=== PATIENT | female | born 1980 | race African-American/Black ===

== ENCOUNTER 2017-03-13 05:49 | Emergency (ER) | payer SELFPAY ==
[~2017-03-13] VITALS: Ht 162.6 cm; Wt 89.8 kg
[~2017-03-13 05:49] MED LIST: TRAMADOL HCL50 MG ORAL
[2017-03-13 06:10] VITALS: BP 159/81
--- NOTE | 2017-03-13 06:13 | Emergency Room Report ---
History of Present Illness General Chief Complaint: Toothache Source: Patient Present Illness HPI Patient with swelling L cheek since yesterday. Denies tooth pain. No fevers. Pain reported 10/10, aching and pressure in cheek radiates into face on L. No fevers, chills. Able to chew and swallow without difficulty. Never with this problem before. Motrin yesterday with some help. No skin changes. Not . No dyspnea. Allergies: Coded Allergies: NO KNOWN ALLERGIES (Unverified Allergy, Unknown, 05/08/15) Patient History Past Medical History: see triage record Social History: Denies: smoking Social History Narrative home Last Menstrual Period: two weeks ago Now: No : 5 Reviewed Nursing Documentation: PMH: Agreed, PSxH: Agreed Nursing Documentation-PMH Past Medical History: No Stated History Review of Systems All Other Systems: negative except mentioned in HPI Physical Exam Vital Signs Date Time Temp Pulse Resp B/P (MAP) Pulse Ox O2 Delivery O2 Flow Rate FiO2 03/13/17 05:54 97.9 78 18 159/81 98 Sp02 EP Interpretation: reviewed, normal General Appearance: well appearing, no apparent distress, GCS 15 Head: normocephalic, atraumatic Eyes: bilateral eye normal inspection, bilateral eye PERRL ENT: hearing grossly normal, normal pharynx, normal voice, moist mucus membranes, other - swelling L cheek above parotid, no dental pain Neck: full range of motion, supple Respiratory: no respiratory distress, speaking full sentences Cardiovascular #1: regular rate, rhythm Cardiovascular #2: 2+ radial (R) Musculoskeletal: digits/nails normal, gait/station normal, normal range of motion, no calf tenderness Neurologic: alert, oriented x3, grossly normal Psychiatric: mood/affect normal Skin: no rash Medical Decision Making Diagnostic Impression: Primary Impression: Dental abscess ER Course Patient with facial swelling and pain. Ddx: parotidis, tooth abscess, ST infection/cellulitis of cheek amongst others. No dental pain. Swelling is above parotid, more associated with upper alveolar ridge. Antibiotics and analgesia indicated. Patient stable for outpatient observation and treatment. Last Vital Signs Date Time Temp Pulse Resp B/P (MAP) Pulse Ox O2 Delivery O2 Flow Rate FiO2 03/13/17 06:46 97.9 78 18 159/81 98 03/13/17 06:10 Room Air Status: improved Disposition: HOME, SELF-CARE Condition: Improved Scripts Amoxicillin* (AMOXIL*) 500 Mg Capsule 500 MG ORAL THREE TIMES A DAY, #21 CAP Prov: Alonzo Finch M.D. 03/13/17 Lidocaine HCl 2% Viscous (Lidocaine HCl 2% Viscous) 100 Ml Solution 1 APPLIC ORAL QID for dental pain, #30 ML Prov: Alonzo Finch M.D. 03/13/17 Tramadol Hcl* (ULTRAM*) 50 Mg Tablet 50 MG ORAL Q6H Y for For Pain, #10 TAB 0 Refills Prov: Alonzo Finch M.D. 03/13/17 Alonzo Finch M.D. Mar 13, 2017 06:13
[2017-03-13] MEDS ORDERED: Ketorolac 60mg Inj IM ONE (06:15)
[2017-03-13] MEDS ORDERED: oxyCODONE HCL/Acetaminophen 5/325mg ORAL ONE (06:15)
[2017-03-13] MEDS ORDERED: TRAMADOL HCL50 MG ORAL (06:17)
[2017-03-13] MEDS ORDERED: AMOXICILLIN500 MG ORAL (06:17)
[2017-03-13] MEDS ORDERED: LIDOCAINE VISC100 ML ORAL (06:17)
[2017-03-13 06:46] VITALS: BP 159/81
== END 2017-03-13 06:46 | disposition home or self-care (01) ==
LOC: EMR 06:22
DX: K04.7 Periapical abscess without sinus (principal)
CPT/HCPCS: 96372; 99284

== ENCOUNTER 2017-03-27 18:54 | Emergency (ER) | payer SELFPAY ==
[~2017-03-27] VITALS: Ht 162.6 cm; Wt 63.5 kg
[~2017-03-27 18:54] MED LIST changes: +AMOXICILLIN500 MG ORAL; +LIDOCAINE VISC100 ML ORAL
--- NOTE | 2017-03-27 19:19 | Emergency Room Report ---
History of Present Illness General Chief Complaint: Pain Source: Patient Present Illness HPI 36 YO Female presents to the ED c/O bilateral 10/10 wrist pain x months. pt. has hx of carpal tunnel, and previously was doing physical therapy. pt. reports changes in insurance recently and has no continuation of medical care for her symptoms. pt. denies trauma or fall, denies erythema, fevers, chills, or rashes. 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 Denies numbness tingling or loss of sensation or gross motor movements of the extremities, incontinence of bowel or bladder. Denies CP, Palpitations, LOC, AMS, dizziness, Changes in Vision, Sensation, paresthesias, or a sudden severe headache. Allergies: Coded Allergies: NO KNOWN ALLERGIES (Unverified Allergy, Unknown, 05/08/15) Patient History Past Medical History: see triage record Past Surgical History: none Pertinent Family History: none Last Menstrual Period: 03/05/17 Now: No Immunizations: UTD Reviewed Nursing Documentation: PMH: Agreed, PSxH: Agreed Nursing Documentation-PMH Past Medical History: No Stated History Review of Systems All Other Systems: negative except mentioned in HPI Physical Exam Vital Signs Date Time Temp Pulse Resp B/P (MAP) Pulse Ox O2 Delivery O2 Flow Rate FiO2 03/27/17 18:57 98.2 92 18 121/70 100 Room Air Sp02 EP Interpretation: reviewed, normal General Appearance: no apparent distress, alert, GCS 15, non-toxic Head: normocephalic, atraumatic Eyes: bilateral eye normal inspection, bilateral eye PERRL ENT: hearing grossly normal, normal voice Neck: full range of motion Respiratory: lungs clear, normal breath sounds, speaking full sentences Cardiovascular #1: regular rate, rhythm, normal capillary refill Cardiovascular #2: 2+ radial (R), 2+ radial (L) Musculoskeletal: back normal, gait/station normal, normal range of motion, tender - TTP to the thenar musculature bilaterally, no obvious thenar wasting, no erythema , no swelling , no obvious deformities. muscle tone is normal Neurologic: alert, oriented x3, responsive, motor strength/tone normal, sensory intact, normal gait, speech normal, other - negative hussein's, network intelligence analyst strength is equal bilaterally Psychiatric: judgement/insight normal, memory normal, mood/affect normal, no suicidal/homicidal ideation Reflexes: 4+ bicep (R), 4+ bicep (L), 4+ tricep (R), 4+ tricep (L), 4+ knee (R) , 4+ knee (L) Skin: normal color, no rash, warm/dry, well hydrated Lymphatic: no adenopathy Medical Decision Making PA Attestation Dr. bishop is my supervising Physician whom patient management has been discussed with. Diagnostic Impression: Primary Impression: Carpal tunnel syndrome on both sides ER Course 36 YO Female presents to the ED c/O bilateral 10/10 wrist pain x months. pt. has hx of carpal tunnel, and previously was doing physical therapy. pt. reports changes in insurance recently and has no continuation of medical care for her symptoms. pt. denies trauma or fall, denies erythema, fevers, chills, or rashes. 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 Denies numbness tingling or loss of sensation or gross motor movements of the extremities, incontinence of bowel or bladder. Denies CP, Palpitations, LOC, AMS, dizziness, Changes in Vision, Sensation, paresthesias, or a sudden severe headache. Ddx considered but are not limited to Fracture, dislocation, contusion, Sprain/ Strain/Spasm, septic joint, nerve impingement just to name a few. Vital signs: are WNL, pt. is afebrile H&PE are most consistent with exacerbation of chronic pain in previously diagnosed carpal tunnel syndrome bilaterally. no new trauma, no obvious deformity, no focal neurological deficit, no evidence of infection. ORDERS: - imaging not required at this time, this is a chronic condition ED INTERVENTIONS: - Motrin PO - Left wrist Splint applied by patient service technician pst. Pt. remains neurovascularly intact. - Right wrist Splint applied by patient service technician pst. Pt. remains neurovascularly intact. -- d/w pt. conservative treatment, and to follow up with a primary care provider. pt given a list of primary care clinics for follow up. d/w pt. to return to the ED with worsening or new symptoms. Patient is given a list of free/ reduce cost clinics for her followup. DISCHARGE: At this time pt. is stable for d/c to home. Will provide printed patient care instructions, and any necessary prescriptions. Care plan and follow up instructions have been discussed with the patient prior to discharge. Last Vital Signs Date Time Temp Pulse Resp B/P (MAP) Pulse Ox O2 Delivery O2 Flow Rate FiO2 03/27/17 18:57 98.2 92 18 121/70 100 Room Air Disposition: HOME, SELF-CARE Condition: Stable Scripts Naproxen* (NAPROXEN*) 500 Mg Tablet. 500 MG ORAL TWICE A DAY for 10 Days, #20 TAB Prov: Flora Alcantar 03/27/17 Referrals: NON PHYSICIAN (PCP) Patient Instructions: Carpal Tunnel Syndrome Additional Instructions: Take medications as directed. Follow up with a Primary Care Provider in 3-5 days, even if your symptoms have resolved. --Please review list of primary care clinics, if you do not already have a primary care provider Return sooner to ED if new symptoms occur, or current symptoms become worse. - Please note that this Emergency Department Report was dictated using [employer] planner technology software, occasionally this can lead to erroneous entry secondary to interpretation by the dictation equipment. Flora Alcantar Mar 27, 2017 19:19
[2017-03-27] MEDS ORDERED: NAPROXEN500 M1 ORAL (19:20)
[2017-03-27 19:30] VITALS: BP 121/70
== END 2017-03-27 19:32 | disposition home or self-care (01) ==
LOC: EMR 19:10
DX: G56.03 Carpal tunnel syndrome, bilateral upper limbs (principal)
CPT/HCPCS: 29125; 99282

== ENCOUNTER 2017-05-05 02:59 | Emergency (ER) | payer MEDICAID ==
[~2017-05-05] VITALS: Ht 162.6 cm; Wt 83.9 kg
[~2017-05-05 02:59] MED LIST changes: +NAPROXEN500 M1 ORAL
[2017-05-05] MEDS ORDERED: Ipratropium 0.02% Inh Soln 2.5ml UD HHN ONE (03:15)
[2017-05-05] MEDS ORDERED: Albuterol ud Inhalation HHN ONE (03:15)
[2017-05-05] MEDS ORDERED: Morphine Sulfate 2mg/ml Inj IVP ONE (03:15)
[2017-05-05] MEDS ORDERED: Ketorolac 30mg Inj IV ONE (03:15)
--- NOTE | 2017-05-05 03:19 | Emergency Room Report ---
History of Present Illness General Chief Complaint: Pain Source: Patient Present Illness HPI Patient presents with 3 days of worsening cough and body aches. She declines flu shots. She is felt feverish but has not documented temperature. She's not eating well. She denies any vomiting or diarrhea. She is status post tubal ligation. She doesn't think she is . There's been nausea. There's no dysuria. Pain is 9/10, constant and most muscles. Chest pain only with coughing. Slight sore throat. She has heard herself wheezing on occasion, mostly after coughing. She has been exposed to cigarette smoke (thought she states rarely). She's been treated with an inhaler in the past but does not have one. She denies asthma. Bilateral hand pain. H/O carpal tunnel. Allergies: Coded Allergies: NO KNOWN ALLERGIES (Unverified Allergy, Unknown, 05/08/15) Patient History Past Medical History: see triage record Social History: Denies: smoking Social History Narrative at home Last Menstrual Period: Apr Reviewed Nursing Documentation: PMH: Agreed, PSxH: Agreed Review of Systems All Other Systems: negative except mentioned in HPI Physical Exam Vital Signs Date Time Temp Pulse Resp B/P (MAP) Pulse Ox O2 Delivery O2 Flow Rate FiO2 05/05/17 03:06 98.4 83 16 131/71 98 Room Air Sp02 EP Interpretation: reviewed, normal General Appearance: well appearing, no apparent distress, GCS 15 Head: normocephalic Eyes: bilateral eye normal inspection, bilateral eye PERRL ENT: moist mucus membranes Neck: supple Respiratory: lungs clear, normal breath sounds - min exp wheeze Cardiovascular #1: regular rate, rhythm Cardiovascular #2: 2+ radial (R) Gastrointestinal: normal inspection, normal bowel sounds, non tender, no mass, non-distended Musculoskeletal: back normal, gait/station normal, normal range of motion, other - bilat volar splints Neurologic: alert, oriented x3, grossly normal Psychiatric: mood/affect normal Skin: normal inspection, warm/dry Medical Decision Making Diagnostic Impression: Primary Impression: Myalgia Additional Impression: Upper respiratory infection Qualified Codes: J06.9 - Acute upper respiratory infection, unspecified ER Course Patient presents with several days of upper respiratory symptoms. Differential includes pneumonia, asthma exacerbation, bronchospasm, influenza, amongst others. The patient evaluated with flu swab and labs. She needs a breathing treatment. Based on her oxygen saturation and lack opf fever chest x-ray is not indicated. Influenza titers negative labs are unremarkable. The patient is improved here. The patient is stable for outpatient observation and treatment. Laboratory Tests Test 05/05/17 03:40 White Blood Count 6.9 K/UL (4.8-10.8) Red Blood Count 4.13 M/UL (4.20-5.40) L Hemoglobin 13.2 G/DL (12.0-16.0) Hematocrit 38.9 % (37.0-47.0) Mean Corpuscular Volume 94 FL (80-99) Mean Corpuscular Hemoglobin 32.0 PG (27.0-31.0) H Mean Corpuscular Hemoglobin Concent 34.0 G/DL (32.0-36.0) Red Cell Distribution Width 10.5 % (11.6-14.8) L Platelet Count 218 K/UL (150-450) Mean Platelet Volume 6.4 FL (6.5-10.1) L Neutrophils (%) (Auto) % (45.0-75.0) Lymphocytes (%) (Auto) % (20.0-45.0) Monocytes (%) (Auto) % (1.0-10.0) Eosinophils (%) (Auto) % (0.0-3.0) Basophils (%) (Auto) % (0.0-2.0) Prothrombin Time 11.5 SEC (9.30-11.50) Prothrombin Time INR 1.1 (0.9-1.1) PTT 33 SEC (23-33) Urine Color Yellow Urine Appearance Clear Urine pH 6.5 (4.5-8.0) Urine Specific [place] 1.020 (1.005-1.035) Urine Protein Negative (NEGATIVE) Urine Glucose (UA) Negative (NEGATIVE) Urine Ketones Negative (NEGATIVE) Urine Occult Blood 4+ (NEGATIVE) H Urine Nitrite Negative (NEGATIVE) Urine Bilirubin Negative (NEGATIVE) Urine Urobilinogen 4 MG/DL (0.0-1.0) H Urine Leukocyte Esterase Negative (NEGATIVE) Urine RBC 40-60 /HPF (0 - 2) H Urine WBC 0-2 /HPF (0 - 2) Urine Squamous Epithelial Cells Moderate /LPF (NONE/OCC) H Urine Bacteria Few /HPF (NONE) Sodium Level 134 MMOL/L (136-145) L Potassium Level 3.3 MMOL/L (3.5-5.1) L Chloride Level 102 MMOL/L (98-107) Carbon Dioxide Level 26 MMOL/L (21-32) Anion Gap 6 mmol/L (5-15) Blood Urea Nitrogen 11 mg/dL (7-18) Creatinine 0.8 MG/DL (0.55-1.30) Estimate Glomerular Filtration Rate > 60 mL/min (>60) Glucose Level 125 MG/DL (74-106) H Calcium Level 8.5 MG/DL (8.5-10.1) Total Bilirubin 0.6 MG/DL (0.2-1.0) Aspartate Amino Transferase (AST) 32 U/L (15-37) Alanine Aminotransferase (ALT) 69 U/L (12-78) Alkaline Phosphatase 77 U/L (46-116) Total Protein 7.4 G/DL (6.4-8.2) Albumin 3.7 G/DL (3.4-5.0) Globulin 3.7 g/dL Albumin/Globulin Ratio 1.0 (1.0-2.7) Microbiology Date/Time Source Procedure Growth Status 05/05/17 04:00 Nasal Nares Influenza Types A,B Antigen (POLI) - Final Complete Last Vital Signs Date Time Temp Pulse Resp B/P (MAP) Pulse Ox O2 Delivery O2 Flow Rate FiO2 05/05/17 05:26 98.4 85 12 137/72 99 Room Air 05/05/17 04:32 21 Status: improved Disposition: HOME, SELF-CARE Condition: Improved Scripts Ibuprofen* (MOTRIN*) 600 Mg Tablet 600 MG ORAL Q6H Y for For Pain, #16 TAB Prov: Alonzo Finch M.D. 05/05/17 Albuterol Sulfate* (ALBUTEROL SULFATE MDI*) 8.5 Gm Hfa.aer.ad 2 PUFF INH Q6H, #1 EA 0 Refills Prov: Alonzo Finch M.D. 05/05/17 Guaifenesin/Codeine Phos* (ROBITUSSIN AC*) 118 Ml Liquid 5 ML ORAL Q6H Y for For Cough, #90 ML 0 Refills Prov: Alonzo Finch M.D. 05/05/17 Alonzo Finch M.D. May 05, 2017 03:19
[2017-05-05 03:47] LABS: MEAN CORPUSCULAR VOLUME 94 FL (80-99); MEAN PLATELET VOLUME 6.4 FL (6.5-10.1); PLATELET COUNT 218 K/UL (150-450); RED BLOOD COUNT 4.13 M/UL (4.20-5.40); RED CELL DISTRIBUTION WIDTH 10.5 % (11.6-14.8); WHITE BLOOD COUNT 6.9 K/UL (4.8-10.8)
[2017-05-05 03:48] LABS: APPEARANCE,URINE CLEAR; KETONES,URINE NEGATIVE (NEGATIVE); LEUKOCYTE ESTERASE ,URINE NEGATIVE (NEGATIVE); NITRITE,URINE NEGATIVE (NEGATIVE); PH,URINE 6.5 (4.5-8.0); PROTEIN,URINE NEGATIVE (NEGATIVE); UROBILINOGEN,URINE 4 MG/DL (0.0-1.0)
[2017-05-05 03:53] LABS: ANION GAP 6 mmol/L (5-15); CALCIUM 8.5 MG/DL (8.5-10.1); CARBON DIOXIDE 26 MMOL/L (21-32); CHLORIDE 102 MMOL/L (98-107); CREATININE 0.8 MG/DL (0.55-1.30); GLOMERULAR FILTRATION RATE > 60 mL/min (>60); POTASSIUM 3.3 MMOL/L (3.5-5.1); SODIUM 134 MMOL/L (136-145)
[2017-05-05 03:55] LABS: INR 1.1 (0.9-1.1); PROTHROMBIN TIME 11.5 SEC (9.30-11.50)
[2017-05-05 03:58] LABS: ALANINE AMINOTRANSFERASE 69 U/L (12-78); ASPARTATE AMINO TRANSFERASE 32 U/L (15-37); TOTAL PROTEIN 7.4 G/DL (6.4-8.2)
[2017-05-05 03:59] LABS: BACTERIA,URINE FEW /HPF; RBC,URINE 40-60 /HPF (0 - 2); SQUAMOUS EPITHELIAL CELL,UR MODERATE /LPF (NONE/OCC); WBC,URINE 0-2 /HPF (0 - 2)
[2017-05-05] MEDS ORDERED: IBUPROFEN600 MG ORAL (05:05)
[2017-05-05] MEDS ORDERED: GUAIFENESIN-CO118 M1 ORAL (05:05)
[2017-05-05] MEDS ORDERED: ALBUTEROL SULF8.5 GM INH (05:05)
[2017-05-05 05:26] VITALS: BP 137/72
== END 2017-05-05 05:17 | disposition home or self-care (01) ==
LOC: EMR 03:10
DX: M79.1 Myalgia (principal); J06.9 Acute upper respiratory infection, unspecified
CPT/HCPCS: 36415; 80053; 81003; 85025; 85610; 85730; 86710; 94640; 94664; 96361; 96374; 96375; 99284; J1885; J2270; J2405

== ENCOUNTER 2017-05-13 08:54 | Emergency (ER) | payer MEDICAID ==
[~2017-05-13] VITALS: Ht 162.6 cm; Wt 88.5 kg
[~2017-05-13 08:54] MED LIST changes: +ALBUTEROL SULF8.5 GM INH; +GUAIFENESIN-CO118 M1 ORAL; +IBUPROFEN600 MG ORAL
[2017-05-13] MEDS ORDERED: Ampicillin/Sulbactam Sod 3 GM in NS 110 ML IVPB ONE (09:15)
--- NOTE | 2017-05-13 09:50 | Emergency Room Report ---
History of Present Illness General Chief Complaint: Generalized Weakness Source: Patient Present Illness HPI Patient is a 36-year-old female presented after increased left-sided facial swelling and generalized weakness. Patient gradual onset of symptoms. Patient reports that she has a bad tooth in her left upper side of her mouth. She reports having generalized weakness as well as upper extremity pain. Patient states that she has carpal tunnel syndrome. She denies recent trauma. Allergies: Coded Allergies: NO KNOWN ALLERGIES (Unverified Allergy, Unknown, 05/08/15) Patient History Last Menstrual Period: last month Now: No Reviewed Nursing Documentation: PMH: Agreed, PSxH: Agreed Nursing Documentation-PMH Past Medical History: No Stated History Review of Systems All Other Systems: negative except mentioned in HPI Physical Exam Vital Signs Date Time Temp Pulse Resp B/P (MAP) Pulse Ox O2 Delivery O2 Flow Rate FiO2 05/13/17 09:04 97.5 65 14 127/85 100 Room Air Sp02 EP Interpretation: reviewed, normal General Appearance: normal inspection, well appearing, no apparent distress, alert, GCS 15 Head: atraumatic ENT: normal ENT inspection, hearing grossly normal, normal voice Neck: normal inspection, full range of motion, supple, no bony tend Respiratory: normal inspection, lungs clear, normal breath sounds, no respiratory distress, no retraction, no wheezing Cardiovascular #1: regular rate, rhythm, no edema Gastrointestinal: normal inspection, normal bowel sounds, non tender, soft, no guarding, no hernia Genitourinary: no CVA tenderness Musculoskeletal: normal inspection, back normal, normal range of motion Neurologic: normal inspection, alert, oriented x3, responsive, it network administrator III-XII nml as tested, speech normal Psychiatric: normal inspection, judgement/insight normal, mood/affect normal Skin: normal inspection, normal color, no rash Medical Decision Making Diagnostic Impression: Primary Impression: Dental infection ER Course Patient presented for left sided facial swelling. Differential diagnosis included wasn't limited to abscess, contusion, mumps, among others.Because of complexity of patient's case laboratory testing and imaging studies were ordered.The patient was given IM penicillin. The patient was advised followup with a dentist or oral surgeon for further evaluation and treatment of dental complaint in the next 1-2 days. Last Vital Signs Date Time Temp Pulse Resp B/P (MAP) Pulse Ox O2 Delivery O2 Flow Rate FiO2 05/13/17 09:04 97.5 65 14 127/85 100 Room Air Status: improved Disposition: HOME, SELF-CARE Condition: Stable Scripts Hydrocodone Bit/Acetaminophen 5-325* (NORCO 5-325*) 1 Each Tablet 1 TAB ORAL Q6H Y for For Pain, #10 TAB 0 Refills Prov: Chance Mohr 05/13/17 Referrals: NOT CHOSEN [facility]/,REFERRING (PCP) Chance Mohr May 13, 2017 09:50
[2017-05-13 09:52] LABS: BASOPHILS % (AUTO) 1.3 % (0.0-2.0); EOSINOPHILS % (AUTO) 0.9 % (0.0-3.0); LYMPHOCYTES % (AUTO) 44.1 % (20.0-45.0); MEAN CORPUSCULAR HEMOGLOBIN 30.4 PG (27.0-31.0); MEAN CORPUSCULAR HGB CONC 31.7 G/DL (32.0-36.0); MEAN CORPUSCULAR VOLUME 96 FL (80-99); MEAN PLATELET VOLUME 5.8 FL (6.5-10.1); MONOCYTES % (AUTO) 4.9 % (1.0-10.0); NEUTROPHILS % (AUTO) 48.9 % (45.0-75.0); PLATELET COUNT 309 K/UL (150-450); RED BLOOD COUNT 4.37 M/UL (4.20-5.40); WHITE BLOOD COUNT 8.4 K/UL (4.8-10.8)
[2017-05-13 09:53] LABS: APPEARANCE,URINE CLEAR; KETONES,URINE NEGATIVE (NEGATIVE); LEUKOCYTE ESTERASE ,URINE 1+ (NEGATIVE); NITRITE,URINE NEGATIVE (NEGATIVE); PH,URINE 6.5 (4.5-8.0); PROTEIN,URINE NEGATIVE (NEGATIVE); UROBILINOGEN,URINE 1 MG/DL (0.0-1.0)
[2017-05-13] MEDS ORDERED: Unasyn 3gm Inj ONE (10:01)
[2017-05-13 10:03] LABS: PROTHROMBIN TIME 10.2 SEC (9.30-11.50)
[2017-05-13 10:15] LABS: BACTERIA,URINE FEW /HPF; MUCUS,URINE FEW /LPF (NONE/OCC); SQUAMOUS EPITHELIAL CELL,UR FEW /LPF (NONE/OCC); WBC,URINE 0-2 /HPF (0 - 2)
[2017-05-13 10:27] LABS: ANION GAP 7 mmol/L (5-15); CALCIUM 8.4 MG/DL (8.5-10.1); CARBON DIOXIDE 30 MMOL/L (21-32); CHLORIDE 105 MMOL/L (98-107); CREATININE 0.7 MG/DL (0.55-1.30); GLOMERULAR FILTRATION RATE > 60 mL/min (>60); POTASSIUM 3.8 MMOL/L (3.5-5.1); SODIUM 142 MMOL/L (136-145)
--- NOTE | 2017-05-13 10:29 | Diagnostic Imaging Report ---
Indications: PAIN, increased left-sided facial swelling, history of dental disease Technique: Spiral images obtained through the facial bones. No IV contrast utilized, per referring physician request. Multiplanar reconstructions were generated.Total dose length product 1439 mGycm. CTDIvol(s) 70mGy. Dose reduction achieved using automated exposure control Comparison: None Findings: Lack of IV contrast limits assessment There is some edema of the subcutaneous fat in the left malar region and buccal region. No definite focal fluid collection demonstrated. There is minimal left maxillary sinus mucosal disease. There is chronic and were displacement of the right lamina papyracea. The orbits are otherwise unremarkable. The optic globes are intact. The dentition is intact except for multiple dental fillings. No acute facial fractures. Visualized intracranial structures are unremarkable. Impression: Left malar and buccal region subcutaneous soft tissue edema. No definite abscess, although sensitivity for such is limited in the absence of IV contrast administration Minimal left maxillary sinus disease No acute bony trauma Medial displacement of the right lamina papyracea, probably developmental but could be on the basis of prior orbital trauma Multiple dental fillings. No other significant dental or periodontal abnormalities demonstrated The CT scanner at [facility] is accredited by the [employer] and the scans are performed using protocols designed to limit radiation exposure to as low as reasonably achievable to attain images of sufficient resolution adequate for diagnostic evaluation.
[2017-05-13 10:31] LABS: ALANINE AMINOTRANSFERASE 44 U/L (12-78); ASPARTATE AMINO TRANSFERASE 27 U/L (15-37); TOTAL PROTEIN 7.6 G/DL (6.4-8.2)
[2017-05-13 10:47] LABS: ALCOHOL < 3 mg/dL
[2017-05-13] MEDS ORDERED: Bicillin LA 1.2 Million Units Syr IM ONE (11:15)
[2017-05-13] MEDS ORDERED: NORCO 5-325 TA1 EACH ORAL (12:00)
[2017-05-13 12:10] VITALS: BP 137/85
== END 2017-05-13 12:10 | disposition home or self-care (01) ==
LOC: EMR 09:30
DX: J32.0 Chronic maxillary sinusitis (principal)
CPT/HCPCS: 36415; 70486; 80053; 80307; 80329; 81001; 81025; 82962; 85025; 85610; 85730; 96372; 99284; J0295; J0561

== ENCOUNTER 2017-05-22 00:22 | Emergency (ER) | payer MEDICAID ==
[~2017-05-22] VITALS: Ht 165.1 cm; Wt 83.9 kg
[~2017-05-22 00:22] MED LIST changes: +NORCO 5-325 TA1 EACH ORAL
[2017-05-22 00:45] VITALS: BP 130/74
[2017-05-22] MEDS ORDERED: AMOXICILLIN500 MG ORAL (01:15)
[2017-05-22] MEDS ORDERED: Tylenol #3 tab (300mg/30mg) ORAL ONE (01:15)
[2017-05-22 01:25] VITALS: BP 135/76
--- NOTE | 2017-05-31 07:34 | Emergency Room Report ---
History of Present Illness General Chief Complaint: Headache Source: Patient Present Illness HPI Patient present with complaints of initially left-sided headache however her main complaint is left-sided cheek And upper facial discomfort Denies any visual changes Denies any chest pain or shortness of breath Pain is a throbbing type pain Patient is aware that she has dental infection/likely abscess and requires dental care Reports that she's having difficulty with her insurance Denies any neck pain denies any difficulty swallowing Allergies: Coded Allergies: NO KNOWN ALLERGIES (Unverified Allergy, Unknown, 05/08/15) Patient History Past Medical History: see triage record Pertinent Family History: none Last Menstrual Period: last month Reviewed Nursing Documentation: PMH: Agreed, PSxH: Agreed Review of Systems All Other Systems: negative except mentioned in HPI Physical Exam Vital Signs Date Time Temp Pulse Resp B/P (MAP) Pulse Ox O2 Delivery O2 Flow Rate FiO2 05/22/17 00:29 98.1 87 16 122/78 99 Room Air Sp02 EP Interpretation: reviewed, normal General Appearance: no apparent distress Head: normocephalic, atraumatic Eyes: bilateral eye PERRL, bilateral eye EOMI ENT: other - Left-sided upper dental decay premolar region, mild erythema and swelling to the gingival region as well, airway patent Neck: full range of motion, supple Respiratory: lungs clear Cardiovascular #1: regular rate, rhythm Musculoskeletal: normal inspection Neurologic: alert, oriented x3, responsive Skin: other - Mild swelling is noted over the left maxillary region Lymphatic: no adenopathy Medical Decision Making Diagnostic Impression: Primary Impression: Headache Additional Impression: Dental infection ER Course Patient's clinical findings in line with dental pathology including likely abscess This can be extremely dangerous only to worsening symptoms such as encephalopathy and sepsis Patient is encouraged highly to please followup with dental specialist The patient is not able to obtain this through her regular insurance she is required to followup at [facility] Patient here requesting pain medication She was provided with one here Patient has had several high category prescriptions given recently And was discussed regarding the safety scribing opiate campaign this requires close followup for further prescription Patient was not happy regarding this Last Vital Signs Date Time Temp Pulse Resp B/P (MAP) Pulse Ox O2 Delivery O2 Flow Rate FiO2 05/22/17 01:25 98.2 87 17 135/76 100 Room Air Status: improved Disposition: HOME, SELF-CARE Condition: Improved Scripts Amoxicillin* (AMOXIL*) 500 Mg Capsule 500 MG ORAL THREE TIMES A DAY, #21 CAP Prov: KATIE DELAROSA D.O. 05/22/17 Referrals: NOT CHOSEN [facility]/MD,REFERRING (PCP) Patient Instructions: Dental Abscess, [id number], General Headache Without Cause Additional Instructions: The dental infection they that is extremely dangerous. Require close followup urgently with dental specialist KATIE DELAROSA D.O. May 31, 2017 07:34
== END 2017-05-22 01:25 | disposition home or self-care (01) ==
LOC: EMR 00:47
DX: R51 Headache (principal); K04.7 Periapical abscess without sinus
CPT/HCPCS: 99282

== ENCOUNTER 2017-07-26 21:24 | Emergency (ER) | payer MEDICAID ==
[~2017-07-26] VITALS: Ht 165.1 cm; Wt 83.9 kg
--- NOTE | 2017-07-26 21:34 | Emergency Room Report ---
History of Present Illness General Chief Complaint: Lower Extremity Injury Source: Patient Present Illness HPI 36YOF with right foot pain Twisted 2 days w/ pain to distal foot and toes Denies pain to ankle No other injury No previous ankle/foot injury Taking epson salt, ice, tylenol Allergies: Coded Allergies: NO KNOWN ALLERGIES (Unverified Allergy, Unknown, 05/08/15) Patient History Past Medical History: none Past Surgical History: none Pertinent Family History: none Social History: Denies: smoking, alcohol use, drug use Last Menstrual Period: jul 02 Now: No : 5 Para: 1 Immunizations: UTD Reviewed Nursing Documentation: PMH: Agreed, PSxH: Agreed Review of Systems All Other Systems: negative except mentioned in HPI Physical Exam Vital Signs Date Time Temp Pulse Resp B/P (MAP) Pulse Ox O2 Delivery O2 Flow Rate FiO2 07/26/17 21:28 98.0 84 20 133/78 99 Room Air 98.1 Sp02 EP Interpretation: reviewed, normal General Appearance: normal inspection, well appearing, no apparent distress, alert, GCS 15, non-toxic Head: normocephalic, atraumatic Eyes: bilateral eye PERRL, bilateral eye EOMI ENT: normal ENT inspection, hearing grossly normal, normal pharynx, no angioedema, normal voice, TMs + canals normal, uvula midline, moist mucus membranes Neck: normal inspection, full range of motion, supple, thyroid normal, no meningismus, no bony tend Respiratory: normal inspection, lungs clear, normal breath sounds, no rhonchi, no respiratory distress, no retraction, no accessory muscle use, no wheezing, speaking full sentences Cardiovascular #1: regular rate, rhythm, no edema, no JVD, normal capillary refill Gastrointestinal: normal inspection, normal bowel sounds, non tender, soft, no mass, no peritonitis, non-distended, no guarding, no hernia, no pulsatile mass Genitourinary: no CVA tenderness Musculoskeletal: normal inspection, back normal, normal range of motion, no calf tenderness, pelvis stable, Abril's Sign negative, other - Right foot: no obvious swelling, deformity to foot. Mild ttp to distal foot metatarsals, toes index/middle. 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 Disposition: Patient is to be discharged to home. Prescriptions given are motrin Patient is instructed to follow up with their primary care doctor within 5 days. Strict return precautions discussed with patient such as fever, chills, worsening/severe pain, nausea, vomiting, which may indicate severe illness. Patient verbalizes understanding and agrees with plan. Please note that this Emergency Department Report was dictated using [employer] helper technology software, occasionally this can lead to erroneous entry secondary to interpretation by the dictation equipment Other X-Ray Diagnostic Results Other X-Ray Diagnostic Results : X-Ray ordered: Right foot # of Views/Limited Vs Complete: 3 View Indication: Pain EP Interpretation: Yes Interpretation: no dislocation, no soft tissue swelling, no fractures Impression: No acute disease Electronically Signed by: Dr Adelina Self MD Last Vital Signs Date Time Temp Pulse Resp B/P (MAP) Pulse Ox O2 Delivery O2 Flow Rate FiO2 07/26/17 21:28 98.0 84 20 133/78 99 Room Air 98.1 Status: improved Disposition: HOME, SELF-CARE Scripts Ibuprofen* (MOTRIN*) 800 Mg Tablet 800 MG ORAL THREE TIMES A DAY for For Pain for 7 Days, #30 TAB 0 Refills Prov: ADELINA SELF M.D. 07/26/17 ADELINA SELF M.D. Jul 26, 2017 21:34
[2017-07-26 21:36] VITALS: BP 133/78
[2017-07-26] MEDS ORDERED: IBUPROFEN800 MG ORAL (21:52)
[2017-07-26 22:05] VITALS: BP 138/81
--- NOTE | 2017-07-27 09:55 | Diagnostic Imaging Report ---
Indication: Pain Technique: 3 views right foot Comparison: none Findings: Questionable lucency of the proximal aspect of the fourth proximal phalanx is noted on 2 views. No other acute fractures. No dislocations. There is mild hallux valgus and metatarsus adductus deformity. Impression: Possible fourth proximal phalangeal fracture. Correlate with clinical findings Findings discussed by phone with Dr. Coffman at the time of interpretation
== END 2017-07-26 22:05 | disposition home or self-care (01) ==
LOC: EMR 21:55
DX: M79.671 Pain in right foot (principal); M20.11 Hallux valgus (acquired), right foot
CPT/HCPCS: 99283

== ENCOUNTER 2017-11-01 00:02 | Emergency (ER) | payer MEDICAID ==
[~2017-11-01] VITALS: Ht 162.6 cm; Wt 89.8 kg
[~2017-11-01 00:02] MED LIST changes: +IBUPROFEN800 MG ORAL
[2017-11-01] MEDS ORDERED: NKM (00:09)
[2017-11-01 00:20] VITALS: BP 149/99
[2017-11-01] MEDS ORDERED: AUGMENTIN 875-1 EAC1 ORAL (00:40)
[2017-11-01] MEDS ORDERED: HYDROCODON-ACE1 EA15 ORAL (00:40)
--- NOTE | 2017-11-01 00:41 | Emergency Room Report ---
History of Present Illness General Chief Complaint: Toothache Source: Patient, Medical Record Present Illness HPI Is a 37-year-old female with history of dental infection before. She presents with chief complaint of dental pain. A couple days ago patient was eating rib and bit into the bone and crack her right upper tooth. She has tenderness over that area. Now she also has tenderness over the left upper tooth over the molar area with swelling of her left facial area. Pain is 10 out of 10. Unable to eat because of the pain. No fever chills but no nausea no vomiting. She had a couple left over antibiotics which she took. Allergies: Coded Allergies: NO KNOWN ALLERGIES (Unverified Allergy, Unknown, 05/08/15) Patient History Past Medical History: see triage record, old chart reviewed Past Surgical History: other Pertinent Family History: none Social History: Denies: smoking Last Menstrual Period: 10/29/17 Now: No : 5 Para: 4 Immunizations: other Reviewed Nursing Documentation: PMH: Agreed; PSxH: Agreed Nursing Documentation-PM Past Medical History: No History, Except For Review of Systems Eye: Denies: eye pain, blurred vision ENT: Denies: ear pain, nose congestion, throat swelling Respiratory: Denies: cough, shortness of breath Cardiovascular: Denies: chest pain, palpitations Gastrointestinal: Denies: abdominal pain, diarrhea, nausea, vomiting Musculoskeletal: Denies: back pain, joint pain Skin: Denies: rash Neurological: Denies: headache, numbness Endocrine: Denies: increased thirst, increased urine Hematologic/Lymphatic: Denies: easy bruising All Other Systems: negative except mentioned in HPI Physical Exam Vital Signs Date Time Temp Pulse Resp B/P (MAP) Pulse Ox O2 Delivery O2 Flow Rate FiO2 11/01/17 00:06 97.7 73 18 149/99 99 Room Air 97.7 vitals normal Sp02 EP Interpretation: reviewed, normal General Appearance: well appearing, no apparent distress, alert Head: normocephalic, atraumatic Eyes: bilateral eye PERRL, bilateral eye EOMI ENT: hearing grossly normal, normal pharynx, other - Oropharynx: Poor dentition. She has a decayed cracked right upper second premolar. Neck tenderness to percussion. She has a left upper first molar that is tender to palpation. There is some mild edema to the facial area. There is small fluctuant area to the gum. Neck: full range of motion, supple, no meningismus Respiratory: chest non-tender, lungs clear, normal breath sounds Cardiovascular #1: regular rate, rhythm, no murmur Gastrointestinal: normal bowel sounds, non tender, no mass, no organomegaly, no bruit, non-distended Musculoskeletal: back normal, gait/station normal, normal range of motion Psychiatric: mood/affect normal Skin: warm/dry Procedures Incision and Drainage Incision and Drainage : Consent: Verbal Site: Mouth Blade Size: 11 Patient Tolerated: Well Complications: None Progress I did an infraorbital block with 1% lidocaine without epinephrine. Total of 2 mL injected. Also did a small injection to the gum area. I made a 1 cm incision over the most fluctuant area and express small amount of pus. Patient tolerated procedure without a problem. Medical Decision Making Diagnostic Impression: Primary Impression: Dental abscess ER Course Patient presents with a dental abscess. No trismus. No evidence of meningitis or other infection. We'll discharge home. Last Vital Signs Date Time Temp Pulse Resp B/P (MAP) Pulse Ox O2 Delivery O2 Flow Rate FiO2 11/01/17 00:20 97.7 73 18 149/99 99 Room Air 97.7 Status: improved Disposition: HOME, SELF-CARE Condition: Stable Scripts Hydrocodone/Acetaminophen 5-325* (HYDROCODONE/ACETAMINOPHEN 5-325*) 1 Each Tablet 1 TAB ORAL Q6H PRN for For Pain, #15 TAB 0 Refills Prov: FAITH PINA M.D. 11/01/17 Amoxicillin/Potassium Clav 875-125* (AUGMENTIN 875-125 TABLET*) 1 Each Tablet 1 TAB ORAL TWICE A DAY, #14 TAB Prov: FAITH PINA M.D. 11/01/17 Patient Instructions: Dental Pain Additional Instructions: Follow up with your dentist DELANEY. Return if symptom worsen. FAITH PINA M.D. November 01, 2017 00:41
[2017-11-01] MEDS ORDERED: Norco 5mg/325mg tab ORAL ONE (00:45)
[2017-11-01 00:55] VITALS: BP 0/0
== END 2017-11-01 00:55 | disposition home or self-care (01) ==
LOC: EMR 00:15
DX: K04.7 Periapical abscess without sinus (principal)
CPT/HCPCS: 10060; 99284; Z7502

== ENCOUNTER 2018-01-15 02:17 | Emergency (ER) | payer MEDICAID ==
[~2018-01-15] VITALS: Ht 162.6 cm; Wt 83.9 kg
[~2018-01-15 02:17] MED LIST changes: +AUGMENTIN 875-1 EAC1 ORAL; +HYDROCODON-ACE1 EA15 ORAL; +NKM
[2018-01-15] MEDS ORDERED: Dicyclomine HCl 10mg/5ml oral soln ORAL ONE (03:30)
[2018-01-15 04:00] LABS: APPEARANCE,URINE CLEAR; BILIRUBIN, URINE NEGATIVE (NEGATIVE); GLUCOSE, URINE (UA) NEGATIVE (NEGATIVE); KETONES,URINE NEGATIVE (NEGATIVE); LEUKOCYTE ESTERASE ,URINE NEGATIVE (NEGATIVE); NITRITE,URINE NEGATIVE (NEGATIVE); PH,URINE 6 (4.5-8.0); PROTEIN,URINE NEGATIVE (NEGATIVE); UROBILINOGEN,URINE 1 MG/DL (0.0-1.0)
[2018-01-15 04:11] LABS: COLOR,URINE YELLOW
[2018-01-15] MEDS ORDERED: DICYCLOMINE HCL10 MG PO (04:12)
[2018-01-15] MEDS ORDERED: IBUPROFEN600 MG ORAL (04:12)
[2018-01-15] MEDS ORDERED: Acetaminophen 500mg (ES) tab ORAL ONE (04:15)
[2018-01-15 04:20] VITALS: BP 127/80
[2018-01-15 04:35] VITALS: BP 131/80
--- NOTE | 2018-01-22 07:55 | Emergency Room Report ---
History of Present Illness General Chief Complaint: Abdominal Pain Source: Patient Present Illness Allergies: Coded Allergies: NO KNOWN ALLERGIES (Unverified Allergy, Unknown, 05/08/15) Patient History Last Menstrual Period: NOVEMBER 2017 Reviewed Nursing Documentation: PMH: Agreed; PSxH: Agreed Medical Decision Making Diagnostic Impression: Primary Impression: Nonspecific abdominal pain Additional Impression: Arthritis ER Course Patient is a for abdominal pain. Differential diagnosis included but was not limited to fracture, contusion, renal stone, vascular insufficiency, aortic aneurysm, cellulitis. Labs Test 01/15/18 02:40 Urine Color Yellow Urine Appearance Clear Urine pH 6 (4.5-8.0) Urine Specific [place] 1.020 (1.005-1.035) Urine Protein Negative (NEGATIVE) Urine Glucose (UA) Negative (NEGATIVE) Urine Ketones Negative (NEGATIVE) Urine Occult Blood 3+ (NEGATIVE) Urine Nitrite Negative (NEGATIVE) Urine Bilirubin Negative (NEGATIVE) Urine Urobilinogen 1 MG/DL (0.0-1.0) Urine Leukocyte Esterase Negative (NEGATIVE) Urine RBC 2-4 /HPF (0 - 2) Urine WBC 0-2 /HPF (0 - 2) Urine Squamous Epithelial Cells Few /LPF (NONE/OCC) Urine Bacteria None /HPF (NONE) Urine HCG, Qualitative Negative (NEGATIVE) Status: improved Disposition: HOME, SELF-CARE Condition: Improved Scripts Dicyclomine Hcl* (DICYCLOMINE HCL*) 10 Mg Capsule 10 MG PO QID, #20 CAP Prov: Chance Mohr MD 01/15/18 Ibuprofen* (MOTRIN*) 600 Mg Tablet 600 MG ORAL Q8H PRN for For Pain, #30 TAB 0 Refills Prov: Chance Mohr MD 01/15/18 Patient Instructions: Abdominal Pain, Adult Chance Mohr MD Jan 22, 2018 07:55
== END 2018-01-15 04:30 | disposition home or self-care (01) ==
LOC: EMR 02:43
DX: R10.9 Unspecified abdominal pain (principal); M19.90 Unspecified osteoarthritis, unspecified site
CPT/HCPCS: 81003; 81025; 99283

== ENCOUNTER 2018-05-03 01:53 | Emergency (ER) | payer MEDICAID ==
[~2018-05-03] VITALS: Ht 165.1 cm; Wt 89.8 kg
[~2018-05-03 01:53] MED LIST changes: +DICYCLOMINE HCL10 MG PO
[2018-05-03 02:05] VITALS: BP 157/83
[2018-05-03] MEDS ORDERED: Norco 5mg/325mg tab ORAL ONE (02:45)
--- NOTE | 2018-05-03 04:22 | Emergency Room Report ---
History of Present Illness General Chief Complaint: Pain Source: Patient Present Illness HPI Patient presents with worsened R wrist and shoulder pain. H/O carpal tunnel bilaterally. This is similar, but now she also feels numbness R base of thumb. Recently she has also had R shoulder pain. Worsened with abduction. Pain keeping her awake at night. Pain rated 10/10, aching both wrist and shoulder. Worse with palpation and movement. Has been taking Motrin 800 without help. The numbness in the hand is new. No trauma. She uses braces on her wrists but is not in physical or occupational therapy. Having trouble with her work because of the pain. No fevers, chest pain, URI sy, NVD, not . No depression. R handed. 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 Now: No Reviewed Nursing Documentation: PMH: Agreed; PSxH: Agreed Nursing Documentation-PMH Past Medical History: No Stated History Hx Neurological Problems: Yes - carpal tunnel syndrome Review of Systems All Other Systems: negative except mentioned in HPI Physical Exam Vital Signs Date Time Temp Pulse Resp B/P (MAP) Pulse Ox O2 Delivery O2 Flow Rate FiO2 05/03/18 02:00 98.1 86 16 157/83 100 Room Air General Appearance: well appearing, no apparent distress, GCS 15 Head: normocephalic, atraumatic Eyes: bilateral eye normal inspection, bilateral eye PERRL ENT: hearing grossly normal, normal voice Neck: full range of motion, supple Respiratory: no respiratory distress, speaking full sentences Cardiovascular #2: 2+ radial (R) - good capillary fill Gastrointestinal: normal inspection Musculoskeletal: digits/nails normal, gait/station normal, other - tender R wrist and proximal thenar area. Shoulder with some painful PROM at 60 degrees abduction Neurologic: alert, motor strength/tone normal, sensory intact - subjective decrease thenar area R hand - rest radial, median and ulnar function full, normal gait Psychiatric: mood/affect normal Skin: no rash Medical Decision Making Diagnostic Impression: Primary Impression: Carpal tunnel syndrome Qualified Codes: G56.01 - Carpal tunnel syndrome, right upper limb Additional Impression: Shoulder pain Qualified Codes: M25.511 - Pain in right shoulder ER Course Patient presents with right wrist pain with history of carpal tunnel syndrome. Also she has right shoulder pain. DDX: exacerbation carpal tunnel, abnormal mechanics, tendinitis, bursitis amongst others. Xrays indicated. Analgesia also given. Xrays with min DJD. Improved with treatment. Splint and sling applied by tech with some relief and excellent position. Neurovasc checked and normal by me. CURES reviewed. Discussed need for PT or OT and outpatient follow up. Patient stable for outpatient observation and treatment. Other X-Ray Diagnostic Results Other X-Ray Diagnostic Results #1: X-Ray ordered: R shoulder # of Views/Limited Vs Complete: 3 View Indication: Pain Interpretation: no dislocation, no soft tissue swelling, no fractures Impression: No acute disease Electronically Signed by: Electronically signed by Alonzo Finch MD Other X-Ray Diagnostic Results #2: # of Views/Limited Vs Complete: 3 View Indication: Pain EP Interpretation: Yes Interpretation: no dislocation, no soft tissue swelling, no fractures, other - sl DJD Impression: Other Electronically Signed by: Electronically signed by Alonzo Finch MD Last Vital Signs Date Time Temp Pulse Resp B/P (MAP) Pulse Ox O2 Delivery O2 Flow Rate FiO2 05/03/18 04:40 98.5 78 16 126/72 100 Room Air Status: improved Disposition: HOME, SELF-CARE Condition: Improved Scripts Hydrocodone Bit/Acetaminophen 5-325* (NORCO 5-325*) 1 Each Tablet 1 TAB ORAL Q6H PRN for For Pain, #8 TAB 0 Refills Prov: Alonzo Finch MD 05/03/18 Ibuprofen* (MOTRIN*) 600 Mg Tablet 600 MG ORAL Q6H PRN for For Pain, #20 TAB Prov: Alonzo Finch MD 05/03/18 Referrals: NOT CHOSEN [facility]/,REFERRING (PCP) Alonzo Finch MD May 03, 2018 04:22
[2018-05-03] MEDS ORDERED: IBUPROFEN600 MG ORAL (04:25)
[2018-05-03] MEDS ORDERED: NORCO 5-325 TA1 EACH ORAL (04:25)
[2018-05-03 04:40] VITALS: BP 126/72
--- NOTE | 2018-05-03 15:25 | Diagnostic Imaging Report ---
Clinical Indication:Right wrist pain for one week Technique: 3 views of the right wrist Comparison: None Findings: A cyst is seen within the capitate. No acute fractures. No dislocations. The joint spaces are preserved. Impression: No acute bony trauma
--- NOTE | 2018-05-03 15:26 | Diagnostic Imaging Report ---
Indication: Right shoulder pain Technique: 3 views of the right shoulder Comparison: none Findings: No acute fractures. No dislocations. The joint spaces are preserved. Impression: Negative
== END 2018-05-03 04:30 | disposition home or self-care (01) ==
LOC: EMR 02:25
DX: G56.03 Carpal tunnel syndrome, bilateral upper limbs (principal); M25.511 Pain in right shoulder
CPT/HCPCS: 29105; 99284

== ENCOUNTER 2019-02-01 03:03 | Emergency (ER) | payer MEDICAID, OTHER ==
[~2019-02-01] VITALS: Ht 162.6 cm; Wt 97.5 kg
--- NOTE | 2019-02-01 03:34 | NUR ---
ED Nurse Note: Pt reports 10/10 bilateral hand pain x3days, 10/10 R knee pain, denies injury
[2019-02-01 03:35] VITALS: BP 126/71
[2019-02-01] MEDS ORDERED: NEURONTIN100 MG ORAL (03:55)
--- NOTE | 2019-02-01 03:56 | Emergency Room Report ---
History of Present Illness General Chief Complaint: Pain Source: Patient Present Illness HPI This is a 38-year-old female who is right-hand dominant. 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 She complaining of bilateral hand pain and numbness. This been ongoing for years or worse in the last week. No trauma. Usually worse at night. Throbbing in nature. Can go to sleep because of it. Also with right knee pain is been ongoing for 2 weeks. [place] a pulling sensation to the back of the knee when she walks. No trauma. No fever chills. Her pain is 7 out of 10. Has not taken anything for it. Allergies: Coded Allergies: NO KNOWN ALLERGIES (Unverified Allergy, Unknown, 05/08/15) Patient History Past Medical History: none, see triage record, old chart reviewed Past Surgical History: none Social History: Denies: smoking Last Menstrual Period: 4 months Now: No Immunizations: other Reviewed Nursing Documentation: PMH: Agreed; PSxH: Agreed Nursing Documentation-PMH Past Medical History: No History, Except For Hx Neurological Problems: Yes - carpal tunnel syndrome Review of Systems Eye: Denies: eye pain, blurred vision ENT: Denies: ear pain, nose congestion, throat swelling Respiratory: Denies: cough, shortness of breath Cardiovascular: Denies: chest pain, palpitations Gastrointestinal: Denies: abdominal pain, diarrhea, nausea, vomiting Musculoskeletal: Reports: joint pain, muscle pain; Denies: back pain Skin: Denies: rash Neurological: Reports: numbness; Denies: headache Endocrine: Denies: increased thirst, increased urine Hematologic/Lymphatic: Denies: easy bruising All Other Systems: negative except mentioned in HPI Physical Exam Vital Signs Date Time Temp Pulse Resp B/P (MAP) Pulse Ox O2 Delivery O2 Flow Rate FiO2 02/01/19 03:28 98.1 90 18 126/71 (89) 95 Room Air Vitals normal Sp02 EP Interpretation: reviewed, normal General Appearance: well appearing, no apparent distress, alert Head: normocephalic, atraumatic Eyes: bilateral eye PERRL, bilateral eye EOMI ENT: hearing grossly normal, normal pharynx Neck: full range of motion, supple, no meningismus Respiratory: chest non-tender, lungs clear, normal breath sounds Cardiovascular #1: regular rate, rhythm, no murmur Gastrointestinal: normal bowel sounds, non tender, no mass, no organomegaly, no bruit, non-distended Musculoskeletal: back normal, gait/station normal, normal range of motion Psychiatric: mood/affect normal Medical Decision Making Diagnostic Impression: Primary Impression: Neuropathy Additional Impression: Knee pain, right Qualified Codes: M25.561 - Pain in right knee ER Course Patient with bilateral hand numbness and pain. This does not appear to be carpal tunnel syndrome because is involving her whole hand. Could be from chronic repetitive movement. No evidence of any septic joint or infection. Her knee is stable. No evidence of any trauma that warrant x-ray. If continue to be an issue, may need an MRI. Last Vital Signs Date Time Temp Pulse Resp B/P (MAP) Pulse Ox O2 Delivery O2 Flow Rate FiO2 02/01/19 03:35 98.1 90 18 126/71 95 Room Air Status: unchanged Disposition: HOME, SELF-CARE Condition: Stable Scripts Gabapentin* (NEURONTIN*) 100 Mg Capsule 100 MG ORAL THREE TIMES A DAY, #30 CAP 0 Refills Prov: Sesar Yeboah MD 02/01/19 Additional Instructions: Follow-up with your doctor in 7 days. If you need still have pain, may need an MRI. See your primary care doctor for this. Return if worse. Sesar Yeboah MD Feb 01, 2019 03:56
[2019-02-01] MEDS ORDERED: HYDROcodone/Acetamin 5/325 tab ORAL ONE (04:00)
--- NOTE | 2019-02-01 04:00 | NUR ---
ER DISCHARGE NOTE: Patient is cleared to be discharged per ERMD, pt is aox4, on room air, with stable vital signs. pt was given dc and prescription instructions, pt was able to verbalize understanding, pt id band removed. pt is able to ambulate with steady gait. pt took all belongings. pt accompanied by sister
== END 2019-02-01 04:00 | disposition home or self-care (01) ==
LOC: EMR 03:16
DX: G62.9 Polyneuropathy, unspecified (principal); M25.561 Pain in right knee; M79.642 Pain in left hand; M79.641 Pain in right hand; G56.00 Carpal tunnel syndrome, unspecified upper limb
CPT/HCPCS: 99282

== ENCOUNTER 2019-03-07 10:30 | Emergency (ER) | payer OTHER ==
[~2019-03-07] VITALS: Ht 157.5 cm; Wt 102.1 kg
[~2019-03-07 10:30] MED LIST changes: +NEURONTIN100 MG ORAL
[2019-03-07] MEDS ORDERED: NKM (10:41)
--- NOTE | 2019-03-07 10:53 | NUR ---
ED Nurse Note: PT WALKED IN TO ER TODAY FROM HOME. AOX4. PT C/O RIGHT EYE IRRITATION AND BLURRING OF VISION X LAST NIGHT WHEN SHE ACCIDENTALLY GOT GLUE ON HER RIGHT EYE LID. PT STATES THE GLUE DID NOT GO IN HER EYE. NO OBVIOUS SWELLING NOTED. PT DENIES DISCHARGE. NO ACTIVE DISCHARGE NOTED. NO REDNESS NOTED. VA OD: 20/50 VA OS: 20/20
[2019-03-07 10:54] VITALS: BP 136/92
[2019-03-07] MEDS ORDERED: Fluorescein Strips ONE (11:35)
[2019-03-07] MEDS ORDERED: Tetracaine 0.5% Opth 4ml Soln ONE (11:35)
--- NOTE | 2019-03-07 11:35 | Emergency Room Report ---
History of Present Illness General Chief Complaint: Eye Problems Source: Patient Present Illness [facility] Disclaimer: Please note that this report is being documented using [employer] technology. This can lead to erroneous entry secondary to incorrect interpretation by the dictating instrument. HPI: Is an otherwise healthy 38-year-old female presenting for evaluation of right eye injury. The patient was applying nails last night when she splashed superglue in her right eye. She rinsed immediately and thoroughly according to patient. She notes pain and irritation. Reports a foreign body sensation and blurred vision with increased lacrimation. Denies purulent drainage, denies lid edema. Denies any other trauma to the eye. Does not wear contact lenses or corrective lenses PMH: Denies PSH: Denies Allergies: Denies Social Hx: Denies Allergies: Coded Allergies: NO KNOWN ALLERGIES (Unverified Allergy, Unknown, 05/08/15) Nursing Documentation-PMH Past Medical History: No History, Except For Review of Systems All Other Systems: negative except mentioned in HPI Physical Exam Vital Signs Date Time Temp Pulse Resp B/P (MAP) Pulse Ox O2 Delivery O2 Flow Rate FiO2 03/07/19 10:38 98.2 89 17 142/98 (113) 100 Room Air General: Awake and alert, no acute distress HEENT: NC/AT. EOMI. PERRLA. No lid edema. The right conjunctiva is injected and erythematous but there is no subconjunctival hemorrhage, no chemosis, no pupillary defect. Mild increased lacrimation but no purulent drainage. Visual acuity: OD 20/50, OS 20/20. Wood lamp exam: No uptake, no abrasions, no ulcers , no dendrites, negative Mary sign. No foreign bodies or gross appreciated under the lids. Resp: Normal work of breathing. MSK: Normal tone and bulk. Moving all extremities. No obvious deformity. Neuro: Awake and alert. Mentating appropriately. Medical Decision Making Diagnostic Impression: Primary Impression: Chemical conjunctivitis of right eye ER Course 38-year-old female presents for evaluation of right eye irritation after splashing superglue in her eye yesterday afternoon. Patient reports significant improvement in pain after receiving tetracaine as part of the fluorescein exam. There is no uptake of fluorescein to suggest a corneal abrasion, ulcer or other pathology. Her vision is now returned to baseline but she was complaining of some blurred vision earlier. Believe this is a chemical conjunctivitis and the patient will be treated with artificial tears and topical steroids. She can follow-up with PMD and referred to ophthalmology as needed. We discussed reasons to return to the emergency department. She understands and agrees with treatment plan was discharged home Last Vital Signs Date Time Temp Pulse Resp B/P (MAP) Pulse Ox O2 Delivery O2 Flow Rate FiO2 03/07/19 10:54 98.4 86 18 136/92 98 Room Air Disposition: HOME, SELF-CARE Condition: Improved Scripts Prednisolone Acetate/Pf (Prednisolone Acet 1% Eye Drop) 5 Ml Drops.susp 1 DROP OP Q4HR for 2 Days, #15 ML Prov: Sundar Walton MD 03/07/19 Dextran 70/Hypromellose (ARTIFICIAL TEARS) 1 Each Droperette 1 EACH OP Q4HR for 10 Days, #100 ML Prov: Sundar Walton MD 03/07/19 Referrals: [facility],REFERRING (PCP) Sundar Walton MD Mar 07, 2019 11:35
--- NOTE | 2019-03-07 11:38 | NUR ---
ED Nurse Note: PT SITTING PEACEFULLY IN BED IN NAD. AOX4. PRESCRIPTIONS AND DISCHARGE PAPERWORK EXPLAINED TO PT. PT VERBALIZES UNDERSTANDING AND ALL QUESTIONS ANSWERED. PRESCRIPTIONS AND DISCHARGE PAPERWORK GIVEN TO PT AND ID WRISTBAND REMOVED. PT WALKED OUT OF ER WITH STEADY GAIT AND ALL BELONGINGS.
[2019-03-07 11:39] VITALS: BP 132/86
[2019-03-07] MEDS ORDERED: Fluorescein Strips BOTH EYES ONE (11:45)
[2019-03-07] MEDS ORDERED: Tetracaine 0.5% Opth 4ml Soln RIGHT EYE ONE (11:45)
[2019-03-07] MEDS ORDERED: ARTIFICIAL TEA1 EAC2 OP (11:47)
[2019-03-07] MEDS ORDERED: PREDNISOLONE ACE5 M1 OP (11:47)
[2019-03-07] MEDS ORDERED: Tetrahydrozoline 0.05% Opth 15ml BOTH EYES SCH (13:00)
== END 2019-03-07 11:48 | disposition home or self-care (01) ==
LOC: EMR 11:15
DX: H10.211 Acute toxic conjunctivitis, right eye (principal)
CPT/HCPCS: 99283